=== PATIENT | female | born 1995 | race Caucasian/White ===

== ENCOUNTER 2020-09-27 02:34 | Emergency (ER) | payer OTHER ==
[2020-09-27] MEDS ORDERED: POVIDONE IODINE 10 % 15 ML UD TOP ONE (02:40)
[2020-09-27] MEDS ORDERED: OXYTOCIN INJ 10 UNITS/ML VIAL ONE ×2 (02:45→05:19)
[2020-09-27] MEDS ORDERED: LACTATED RINGERS 0 ML ONE (02:45)
[2020-09-27] MEDS ORDERED: SODIUM CHLORIDE 0.9% 1000ML 1,000 ML ONE (02:46)
[2020-09-27] MEDS ORDERED: ERYTHROMYCIN OPHTH OINT 1 APPLIC ONE (03:03)
[2020-09-27] MEDS ORDERED: PHYTONADIONE INJ (PEDIATRIC) 1 MG/0.5 ML SYR ONE (03:03)
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
[2020-09-27] MEDS ORDERED: POTASSIUM CHLORIDE ELIXIR 20 MEQ/15 ML UD PO ONE (03:43)
[2020-09-27 04:26] VITALS: TEMP 97; O2SAT 100
[2020-09-27 05:26] VITALS: BP 125/70
== END 2020-09-27 04:54 | disposition short-term general hospital (02) ==
LOC: ER 02:34
DX: O60.14X0 Preterm labor third trimester with preterm delivery third trimester, not applicable or unspecified (principal); Z3A.35 35 weeks gestation of pregnancy; Z37.0 Single live birth; R56.9 Unspecified convulsions; Z79.899 Other long term (current) drug therapy
CPT/HCPCS: 80053; 80307; 82550; 82553; 84484; 85025; 85610; 85730; 96374; 99285; J2590; J7030